=== PATIENT | male | born 1985 | race Caucasian/White ===

== ENCOUNTER 2023-03-20 13:47 | Emergency (ER) | payer BC, SELFPAY ==
[2023-03-20] VITALS (18 sets, daily range): BP systolic 111–134; BP diastolic 73–87; PULSE 49–75; RESP 16; TEMP 36.8; O2SAT 97–100; BMI 24.4
--- NOTE | 2023-03-20 15:30 | CRLHL7_ITS ---
For Patients: As a result of the Century Cures Act, medical imaging exams and procedure reports are released immediately into your electronic medical record. You may view this report before your referring provider. If you have questions, please contact your health care provider. INDICATION: Chest pain. TECHNIQUE: Two view chest. FINDINGS: The lungs are clear. The heart, mediastinum and pulmonary vessels are of normal size. There is no evidence of pleural disease. IMPRESSION: Negative chest. Dictated by Vernon Rizzo MD @ 03/20/2023 3:58:56 PM (Electronically Signed)
--- NOTE | 2023-03-20 15:44 | ED.CHESTPAIN ---
HPI - Chest Pain General Date Seen: 03/20/23 Chief Complaint: Chest Pain Stated Complaint: chest pain Time Seen by Provider: 03/20/23 15:10 Source: patient Mode of arrival: ambulatory Limitations: no limitations History of Present Illness HPI narrative: Patient is a 37-year-old male presenting to the emergency department for chest pain that started yesterday. States the pain was midsternal with no radiation. [place] like a pressure sensation like an elephant was sitting on his chest pain. Has never had symptoms like this before. Pain seems to come and go and is better at this time. Does notice it worse with mild exertion. Symptoms did not wake him up from sleep overnight. Denies fevers, chills, shortness of breath, lightheadedness, dizziness, abdominal pain, vision changes. Does not smoke. Has no concerning family history of heart disease. No recent surgeries, travel, trauma as. No history of cancer. Related Data Home Medications Medication Instructions Recorded Confirmed No Known Home Medications 03/20/23 03/20/23 Allergies Allergy/AdvReac Type Severity Reaction Status Date / Time No Known Drug Allergies Allergy Verified 03/20/23 13:50 Review of Systems Status of ROS Reports: 10 or more systems reviewed and unremarkable except as noted in History and below PFSH PFS Social History Smoking Status: Unknown if ever smoked Non-prescribed substance use: declined to answer Exam Narrative Exam Narrative: Const: Well-nourished, Well-developed, in mild distress Eyes: PERRL, no conjunctival injection, and symmetrical lids HENT: Atraumatic external nose and ears. Moist mucous membranes. Neck: Symmetric, trachea midline, No thyromegaly. CVS: RRR, No murmurs or gallops. Peripheral pulses 2+ and equal in all extremities RESP: Unlabored respiratory effort. Clear to auscultation bilaterally. GI: Nontender/Nondistended, No rebound or guarding. MSK:Extremities w/o deformity, Normal Active ROM Skin: Warm, Dry. No rashes or lesions. Neuro: Normal Muscle tone, No focal neurological deficits. Psych: Awake, Alert, & Oriented x3. Appropriate mood and affect. Const Vital Signs, click to edit/add: Vital Signs - 24 hr 03/20/23 13:51 03/20/23 15:09 03/20/23 15:13 Temperature 98.3 F Pulse Rate 61 57 L Pulse Rate [Pulse Oximeter] 69 Respiratory Rate 16 Blood Pressure 127/75 Blood Pressure [Right Upper Arm] 134/82 Pulse Oximetry 100 99 99 Oxygen Delivery Method Room Air Room Air 03/20/23 15:30 03/20/23 15:31 03/20/23 16:00 Temperature Pulse Rate 55 L 54 L 60 Pulse Rate [Pulse Oximeter] Respiratory Rate Blood Pressure 120/77 Blood Pressure [Right Upper Arm] Pulse Oximetry 98 97 99 Oxygen Delivery Method 03/20/23 16:01 Temperature Pulse Rate Pulse Rate [Pulse Oximeter] Respiratory Rate Blood Pressure 120/87 Blood Pressure [Right Upper Arm] Pulse Oximetry Oxygen Delivery Method Course Vital Signs Vital signs: Initial Vital Signs Temperature 98.3 F 03/20/23 13:51 Temperature Source Temporal Artery Scan 03/20/23 13:51 Pulse Rate 69 03/20/23 13:51 Pulse Rhythm Regular 03/20/23 13:51 Pulse Strength 3+ Normal 03/20/23 13:51 Respiratory Rate 16 03/20/23 13:51 Blood Pressure 134/82 03/20/23 13:51 Blood Pressure Mean 99 03/20/23 13:51 Blood Pressure Position Sitting 03/20/23 13:51 Pulse Oximetry 100 03/20/23 13:51 Oxygen Delivery Method Room Air 03/20/23 13:51 Vital Signs Temperature 98.3 F 03/20/23 13:51 Pulse Rate 69 03/20/23 13:51 Respiratory Rate 16 03/20/23 13:51 Blood Pressure 134/82 03/20/23 13:51 Pulse Oximetry 100 03/20/23 13:51 Oxygen Delivery Method Room Air 03/20/23 13:51 Temperature 98.3 F 03/20/23 13:51 Pulse Rate 60 03/20/23 16:00 Respiratory Rate 16 03/20/23 13:51 Blood Pressure 120/87 03/20/23 16:01 Pulse Oximetry 99 03/20/23 16:00 Oxygen Delivery Method Room Air 03/20/23 15:09 MDM - Chest Pain MDM Narrative Medical decision making narrative: Patient is a 37-year-old male presenting to emergency department for chest pain and shortness of breath. We will check for signs of ACS. he is PERC negative. PE is unlikely at this time. Chest x-ray will also be done to look for signs of pneumonia or pneumothorax. Also test for COVID/flu/RSV. Ordered BMP, CBC, troponin and EKG. EKG, CBC, CMP chest x-ray, initial all returned showing no concerning abnormalities. At this pneumonia and pneumothorax are unlikely. No signs of ACS but we will repeat a troponin due to his symptoms. Symptoms do not seem musculoskeletal in nature as he has no tenderness palpation no recent heavy lifting or exertion. His heart score at this time and is 0. Repeat troponin was also 0. He is otherwise doing well at this time and can be safely discharged home. He is agreeable with this plan. Lab Data Labs: Lab Results 03/20/23 03/20/23 Range/Units 15:40 18:00 WBC 5.54 (4.50-11.00) K/uL RBC 4.76 (4.30-5.90) m/uL Hgb 13.8 (13.5-17.5) gm/dL Hct 40.4 (37.0-53.0) % MCV 85 (80-100) fL MCH 29 (26-34) pg MCHC 34 (32-36) gm/dL RDW Coeff of [place] 12.1 (11.5-15.5) % Plt Count 184 (140-440) K/uL Neut % (Auto) 51.0 (42.0-72.0) % Lymph % (Auto) 38.4 (20-44) % Larue % (Auto) 7.8 (0.0-11.0) % Eos % (Auto) 2.2 (0.0-7.0) % Baso % (Auto) 0.4 (0.0-3.0) % Neut # (Auto) 2.83 (1.7-7.0) K/uL Lymph # (Auto) 2.13 (0.90-2.90) K/uL Larue # (Auto) 0.40 (0.00-0.90) K/UL Eos # (Auto) 0.12 (0.00-0.50) K/uL Baso # (Auto) 0.02 (0.00-0.30) K/uL Abs Immat Gran (auto) 0.01 (0.00-0.30) K/uL Imm/Tot Granulo (auto) 0.2 % Sodium 138 (135-149) mmol/L Potassium 4.0 (3.6-5.1) mmol/L Chloride 101 (96-114) mmol/L Carbon Dioxide 28 (20-32) mmol/L Anion Gap 9 (7-15) mEq/L BUN 17 (5-24) mg/dL Creatinine 1.0 (0.5-1.5) mg/dL Estimated Creat Clear 118.73 Estimated GFR 100 ml/min Glucose 89 (60-115) mg/dL Calcium 9.3 (8.4-10.6) mg/dL SARS-CoV-2 (PCR) Negative SARS-CoV-2 (Negative) Influenza Type A (PCR) Negative PCR FLU A (Negative) Influenza Type B (PCR) Negative PCR FLU B (Negative) RSV (PCR) Negative PCR RSV (Negative) POC Troponin I 0.00 L 0.00 L (0.01-0.04) ng/ml Imaging Data Chest x-ray: Radiologist's impression: Negative chest. Dictated by Vernon Rizzo MD @ 03/20/2023 3:58:56 PM ECG Data Attestation: I personally reviewed and interpreted this ECG as follows: Prior ECG tracings: not available for review Interpretation: Normal sinus rhythm with a rate of 64 beats per minute, normal intervals, normal axis, no ST or T-wave abnormalities Discharge Plan Discharge Clinical Impression: Chest pain Qualifiers: Chest pain type: unspecified Qualified Code(s): R07.9 - Chest pain, unspecified Patient Disposition: Home, Self-Care Condition: Stable Instructions: Noncardiac Chest Pain (ED) Additional Instructions: Follow-up with your primary care provider if symptoms persist. Return to emergency department for now worsening symptoms Prescriptions: No Action No Known Home Medications Follow Up/Referrals: Dinesh Brown MD [Primary Care Provider] - Stand Alone Forms: [employer] Info Instructions
[2023-03-20 16:01] LABS: Basophils Absolute Auto 0.02 K/uL (0.00-0.30); Basophils Percent Auto 0.4 % (0.0-3.0); Eosinophils Absolute Auto 0.12 K/uL (0.00-0.50); Eosinophils Percent Auto 2.2 % (0.0-7.0); Hematocrit 40.4 % (37.0-53.0); Hemoglobin* 13.8 gm/dL (13.5-17.5); Immature Granulocytes Abs Auto 0.01 K/uL (0.00-0.30); Immature Granulocytes Pct Auto 0.2 %; Lymphocytes Absolute Auto 2.13 K/uL (0.90-2.90); Lymphocytes Percent Auto 38.4 % (20-44); Mean Corpuscular HGB Conc 34 gm/dL (32-36); Mean Corpuscular Hemoglobin 29 pg (26-34); Mean Corpuscular Volume 85 fL (80-100); Monocytes Percent Auto 7.8 % (0.0-11.0); Neutrophils Absolute Auto 2.83 K/uL (1.7-7.0); Platelet Count* 184 K/uL (140-440); RDW Coefficient of Variation % 12.1 % (11.5-15.5); Red Blood Count 4.76 m/uL (4.30-5.90); White Blood Count* 5.54 K/uL (4.50-11.00)
[2023-03-20 16:08] LABS: Slide Review Reflex No
[2023-03-20 16:21] LABS: Chloride* 101 mmol/L (96-114); Sodium* 138 mmol/L (135-149)
[2023-03-20 16:24] LABS: Anion Gap 9 mEq/L (7-15); Blood Urea Nitrogen* 17 mg/dL (5-24); Carbon Dioxide* 28 mmol/L (20-32); Est. Creatinine Clearance* 118.73; Estimated Glomerular Filt Rate 100 ml/min
[2023-03-20 16:25] LABS: Calcium* 9.3 mg/dL (8.4-10.6); Glucose* 89 mg/dL (60-115)
[2023-03-20 16:38] LABS: PCR FLU A Negative PCR FLU A (Negative); PCR FLU B Negative PCR FLU B (Negative); PCR RSV Negative PCR RSV (Negative)
[2023-03-20 16:39] LABS: SARS PCR* Negative SARS-CoV-2 (Negative)
== END 2023-03-20 18:37 | disposition home or self-care (01) ==
PROVIDERS: Emergency Provider Student in an Organized Health Care Education/Training Program; PCP Family Medicine
DX: R07.9 Chest pain, unspecified (principal)
CPT/HCPCS: 36415; 71046; 80048; 84484; 85025; 87631; 93005; 99283; 99284